=== PATIENT | female | born 1935 | race Caucasian/White ===

== ENCOUNTER 2016-10-13 05:54 | Day surgery (SDC) | payer MEDICARE, BC ==
[~2016-10-13 05:54] MED LIST: Midazolam 1 MG/ML 2 ML SDV ONE; fentaNYL 100 MCG/2 ML SDV ONE
[2016-10-13] MEDS ORDERED: fentaNYL 100 MCG/2 ML SDV IV ONE ×5 (06:58→17:11)
[2016-10-13] MEDS ORDERED: Midazolam 1 MG/ML 2 ML SDV IV ONE ×7 (06:59→17:11)
[2016-10-13] MEDS ORDERED: Dextrose 5%-0.45% NaCl 1,000 ML IV SCH ×2 (08:15→10:00)
[2016-10-13 09:40] VITALS: BP 111/52
[2016-10-13] MEDS ORDERED: Sodium Chloride 0.9% 10 ML Syringe FLUSH PRN (09:53)
--- NOTE | 2016-10-13 09:57 | OR ---
DATE: 10/13/2016 PROCEDURE: Total colonoscopy. INSTRUMENT USED: PCF-H180AL Olympus video colonoscope. PREMEDICATIONS: Fentanyl 150 mcg intravenous, Versed 4 mg intravenous. Nasal O2 cannula. The procedure was done under pulse oximetry, BP recording, and bar tacker sewing machine. INDICATION: The patient with recurrent episodes of left-sided lower abdominal pain, subacute diverticulitis, scheduled for colon resection. Colonoscopic examination is done for detection of any polypoid lesions and removal, endoscopic hemostasis therapy if needed. DESCRIPTION OF PROCEDURE: Initial rectal exam was unremarkable. Rigid anoscopy was normal. The colonoscope was passed with ease. There was some amount of fecal material. Solid feces also noted that had to be aspirated. There were numerous scattered wide-mouth diverticula along with deformity, distal left colon. The scope was passed with ease up to the ileocecal area, photographs were taken of the normal-appearing cecum, identified by double-bulged ileocecal folds. No bleeding was noted from any of the visualized areas at the commencement of the examination. No vascular ectasia. No large isolated ulcerations seen. No evidence of diffuse inflammatory bowel disease in the form of friability, contact bleeding, or ulcerations. No polyp or tumor mass identified. Probing the proximal sides of folds and flexures, using adequate distention and clearing up the stool material, withdrawal of the scope was made, cecum to rectum time over 6 minutes. No bleeding was noted from any of the visualized areas at the completion of examination. IMPRESSION: Diverticulosis. The patient tolerated the procedure well. [facility] /[id number]
--- NOTE | 2016-10-13 10:18 | LETTER ---
10/13/2016 Fernando Luz MD [facility] [address] [place] [id number] RE: SEDA SEO : [id number] Luz: Ms. Seda Seo had colonoscopic examination done this morning and she tolerated the procedure well. I herewith send a copy of the endoscopy note and photographs for your review. Thank you. Sincerely, [facility] /[id number]
== END 2016-10-13 09:29 | disposition home or self-care (01) ==
LOC: DL.ENDO 05:54
PROVIDERS: ATTEND Internal Medicine Gastroenterology
DX: K57.30 Diverticulosis of large intestine without perforation or abscess without bleeding (principal); Z88.1 Allergy status to other antibiotic agents
CPT/HCPCS: 45378; J2250; J3010; J7042

== ENCOUNTER → 2018-10-07 | Outpatient (CLI) | payer MEDICARE, BC ==
[~2018-10-07] MED LIST changes: +Barium Sulfate w/v 2.1% Oral Susp 450 ML Bottle PO ONE; +Iopamidol 612 MG/ML 75 ML Bottle IVPUSH ONE; -Midazolam 1 MG/ML 2 ML SDV ONE; -fentaNYL 100 MCG/2 ML SDV ONE
--- NOTE | 2018-10-07 16:36 | CT ---
Clinical history: 83-year-old 136 pound female with history complications diverticulitis of the colon (fever, perforation, abscess and bleeding) who has had subsequent colon surgery and presents now with... abdominal distention and pain. Scan technique: Volume acquisition of data from the abdomen and pelvis obtained after oral ingestion 2 bottles Redicat barium and during/after intravenous infusion 75 cc nonionic Isovue contrast (3 cc/s via injector) while patient was lying supine on the Siemens multislice scanner [place], [place]. All data archived in the PACS system for storage, reformatting axial/sagittal/coronal planes and study. Interpretation: 1. Gallbladder, liver, stomach, spleen, pancreas and adrenal glands unremarkable. 2. Solitary 3 cm diameter benign-appearing cyst lower midpole cortex laterally left kidney. No other cysts or solid mass lesion and no sign of nephrolithiasis or obstructive uropathy either kidney. Symmetrically distended normal appearing urinary bladder. 3. Sigmoid diverticula. No sign of inflammatory "dirty" peritoneal fat, abscess or mechanical bowel obstruction. No hernias. 4. No ascites or free intraperitoneal air. 5. Lung bases clear. Normal caliber abdominal aorta. Normal midline senescent uterus 6. 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 No fractures. CONCLUSION: No signs of mechanical bowel obstruction or acute peritonitis. Left renal cyst. Abnormal lumbar spine.
== END ==
LOC: DL.CT 10:08
PROVIDERS: ATTEND Nurse Practitioner
DX: K59.00 Constipation, unspecified (principal); R14.0 Abdominal distension (gaseous); R10.9 Unspecified abdominal pain
CPT/HCPCS: 74177; Q9967

== ENCOUNTER 2024-04-22 16:14 | Emergency (ER) | payer MEDICARE, BC ==
[2024-04-22] MEDS: Succinylcholine 200 MG/10 ML MDV IV ONE (15:52)
[2024-04-22] MEDS: propofoL 1,000 MG/100 ML 100 ML IV SCH (16:00)
[2024-04-22 16:02] LABS: BASOPHILS PERCENT AUTO 0.5 % (0.0-1.0); EOSINOPHILS PERCENT AUTO 1.3 % (1.0-3.0); HEMATOCRIT 37.7 % (37.0-47.0); HEMOGLOBIN 12.3 g/dL (12.0-16.0); LYMPHOCYTES PERCENT AUTO 40.4 % (20.5-50.1); MEAN CORPUSCULAR HEMOGLOBIN 29.8 pg (27.0-34.0); MEAN CORPUSCULAR HGB CONC 32.6 g/dL (33.0-35.0); MEAN CORPUSCULAR VOLUME 91.3 fL (80-100); MONOCYTES PERCENT AUTO 10.5 % (2-8); NEUTROPHILS PERCENT AUTO 47.3 % (42.2-75.2); PLATELET COUNT,PLT 290 10^3/uL (150-450); RED BLOOD CELL COUNT 4.13 10^6/uL (4.2-5.4); WHITE BLOOD CELL COUNT,WBC 10.4 10^3/uL (5.0-10.0)
[2024-04-22 16:19] LABS: O2 DELIVERY DEVICE T-PIECE; PCO2 VENOUS 50 mmHg (41-51); PH,VENOUS 7.35 (7.31-7.41)
[2024-04-22 16:20] LABS: A/G RATIO 1.1; ALANINE AMINOTRANSFERASE,ALT 48 U/L (14-59); ALBUMIN 3.6 g/dL (3.4-5.0); ALKALINE PHOSPHATASE 100 U/L (46-116); ANION GAP 15.8 mEq/L (7-13); ASPARTATE AMNIOTRANSFERASE,AST 42 U/L (15-37); BASE EXCESS VENOUS 0.8 mmol/l ((-2)-(+3)); BICARBONATE,VENOUS 27 mmol/l (19-25); BILIRUBIN TOTAL 0.4 mg/dL (0.2-1.0); BLOOD UREA NITROGEN,BUN 17 mg/dL (7-18); BUN/CREATININE RATIO 21.8 (No establ ref range); CALCIUM 9.4 mg/dL (8.5-10.1); CARBON DIOXIDE,CO2 27 mmol/L (21-32); CHLORIDE,CL 99 mmol/L (98-107); CREATININE 0.78 mg/dL (0.55-1.02); GLUCOSE RANDOM 132 mg/dL (70-99); LACTIC ACID 1.2 mmol/L (0.4-2.0); MAGNESIUM 2.2 mg/dL (1.8-2.4); O2 SATURATION VENOUS 98.4 % (60-80); PO2 VENOUS 105 mmHg (35-42); POTASSIUM,K 3.8 mmol/L (3.5-5.1); PROTEIN TOTAL,TP 6.8 g/dL (6.4-8.2); SODIUM,NA 138 mmol/L (136-145)
[2024-04-22 16:21] LABS: ESTIMATED GFR 74 mL/min (>=60); ETHANOL BLOOD MEDICAL < 3 mg/dL (0)
[2024-04-22 16:29] LABS: PROTHROMBIN TIME 9.9 SEC (9.0-12.0)
[2024-04-22] MEDS: niCARdipine/Normal Saline 20 MG in Premix Bag 1 BAG IV SCH (16:45)
[2024-04-23 08:29] VITALS: BP 153/66; PULSE 96
== END 2024-04-22 18:47 | disposition other institution (70) ==
LOC: DL.ED 16:14
DX: I61.9 Nontraumatic intracerebral hemorrhage, unspecified (principal); Z88.1 Allergy status to other antibiotic agents; Z79.899 Other long term (current) drug therapy
CPT/HCPCS: 31500; 36415; 51702; 70450; 71045; 80053; 80307; 82803; 82947; 83605; 83735; 84484; 85025; 85610; 87040; 93005; 93010; 96365; 96368; 96375; 99291; 99292; J0330; J2704; J3490